=== PATIENT | male | born 1965 ===

== ENCOUNTER 2018-09-04 19:09 | Emergency (ER) | payer SELFPAY ==
[2018-09-04 19:39] VITALS: BP 139/90; RESP 15; TEMP 99.3; O2SAT 98
--- NOTE | 2018-09-04 20:51 | ED PDOC ---
Upper Extremity Pain/Injury Time Seen by Provider: 09/04/18 20:02 Chief Complaint (Nursing): Finger,Hand,&Wrist Chief Complaint (Provider): Right 4th Digit Pain History Per: Patient History/Exam Limitations: no limitations Onset/Duration Of Symptoms: Days (6) Additional Complaint(s): 52 year old male with no significant medical history presents to ED with right 4th digit redness, swelling, worsening pain since x6 days. He is not sure what happened and denies biting nails, injuries, drainage, decreased motor sensations. PMD: none Past Medical History Reviewed: Historical Data, Nursing Documentation, Vital Signs Vital Signs: Last Vital Signs Temp 99.3 F 09/04/18 19:33 Pulse 105 H 09/04/18 19:33 Resp 15 09/04/18 19:33 BP 139/90 09/04/18 19:33 Pulse Ox 98 09/04/18 19:33 Primary Care Provider: FAMILY PROVIDER,NO - Medical History PMH: No Chronic Diseases - Surgical History Surgical History: No Surg Hx - Family History Family History: States: No Known Family Hx - Social History Current smoker - smoking cessation education provided: No Alcohol: None Drugs: Denies - Home Medications Home Medications: Ambulatory Orders Medication Instructions Recorded Amoxicillin/Clavulanate [Augmentin 1 tab PO BID 10 Days #20 tab 09/04/18 875 MG-125 MG] Ibuprofen [Motrin Tab] 600 mg PO Q6 PRN #20 tab 09/04/18 - Allergies Allergies/Adverse Reactions: Allergies Allergy/AdvReac Type Severity Reaction Status Date / Time No Known Allergies Allergy Verified 09/04/18 19:39 Review of Systems ROS Statement: Except As Marked, All Systems Reviewed And Found Negative Constitutional: Negative for: Other (denies biting nails, no injuries) Musculoskeletal: Positive for: Hand Pain (right 4th digit redness, swelling, worsening pain). Negative for: Other (no drainage) Neurological: Negative for: Other (no decreased motor sensation) Physical Exam - Reviewed Nursing Documentation Reviewed: Yes Vital Signs Reviewed: Yes - Physical Exam Comments: Patient reports injuring right 4th digit but is unsure as to how he injured it. Otherwise: (-) numbness, (-) other injury. GENERAL APPEARANCE: Patient is awake, alert, oriented x 3, in no acute distress. SKIN: Warm, dry; (-) cyanosis. CHEST AND RESPIRATORY: (-) chest wall tenderness. Lungs: (-) rales, (-) rhonchi, (-) wheezes; breath sounds equal bilaterally. HEART AND CARDIOVASCULAR: (-) irregularity; (-) murmur, (-) gallop. DIGIT: (+) Tenderness, (+) mild erythema and swelling below nails, 2+ pulse. (- ) drainage, (-) pus pocket visualized, (-) streaking, (-) deformity. (-) distal neurovascular deficit. Full ROM of all digits. Capillary refill less than 2 seconds. Elbow, hand and digits: (-) tenderness. NEURO AND PSYCH: Mental status as above. - ECG O2 Sat by Pulse Oximetry: 98 (RA) Pulse Ox Interpretation: Normal Medical Decision Making Medical Decision Making: Time: 2039 Initial Plan: paronychia --Nothing visible to drain --Antibiotics with warm soak --Clinic follow up Discussed results, diagnosis, treatment, return precaution and f/u with pt who sis understanding, in agreement and stable for dc Scribe Attestation: Documented by Manish Greene acting as a scribe for Avel Penn PA-C. Provider Scribe Attestation: All medical record entries made by the Scribe were at my direction and personally dictated by me. I have reviewed the chart and agree that the record accurately reflects my personal performance of the history, physical exam, medical decision making, and the department course for this patient. I have also personally directed, reviewed, and agree with the discharge instructions and disposition. Disposition - Clinical Impression Clinical Impression: Paronychia of finger - Patient ED Disposition Is Patient to be Admitted: No Counseled Patient/Family Regarding: Studies Performed, Diagnosis, Need For Followup, Rx Given - Disposition Referrals: [facility] [Outside] Disposition: Routine/Home Disposition Time: 20:50 Condition: STABLE Additional Instructions: Thank you for letting us take care of you today. The emergency medical care you received today was directed at your acute symptoms. If you were prescribed any medication, please fill it and take as directed. Warm water soaks 2-3 times a day. It may take several days for your symptoms to resolve. Return to the Emergency Department if your symptoms worsen, do not improve, or if you have any other problems. Please contact your doctor in 2 days for re-evaluation and follow up / or call one of the physicians/clinics you have been referred to that are listed on the Patient Visit Information form that is included in your discharge packet. Bring any paperwork you were given at discharge with you along with any medications you are taking to your follow up visit. Our treatment cannot replace ongoing medical care by a primary care provider (PCP) outside of the emergency department. Prescriptions: Amoxicillin/Clavulanate [Augmentin 875 MG-125 MG] 1 tab PO BID 10 Days #20 tab Ibuprofen [Motrin Tab] 600 mg PO Q6 PRN #20 tab PRN Reason: Pain, Moderate (4-7) Instructions: Tamanna (DC) Forms: [employer] (Iraqi) Print Language: BOLIVIAN - POA Present On Arrival: None
[2018-09-04 21:06] VITALS: PULSE 87
== END 2018-09-04 20:58 | disposition home or self-care (01) ==
LOC: MERGE 19:09 → H.ER 19:09
DX: L03.011 Cellulitis of right finger (principal)